=== PATIENT | male | born 1990 | race African-American/Black ===

== ENCOUNTER 2022-08-12 21:09 | Emergency (ER) | payer SELFPAY ==
[~2022-08-12] VITALS: Ht 185.4 cm; Wt 91.1 kg
[2022-08-12 21:10] VITALS: BP 130/100
[2022-08-14] MEDS ORDERED: CEPH500C PO (18:52)
== END 2022-08-13 00:03 | disposition left against medical advice (07) ==
LOC: M ED 21:09
DX: Z53.21 Procedure and treatment not carried out due to patient leaving prior to being seen by health care provider (principal)

== ENCOUNTER 2022-08-14 15:04 | Emergency (ER) | payer OTHER, SELFPAY ==
[~2022-08-14] VITALS: Ht 182.9 cm; Wt 95.8 kg
[2022-08-14] MEDS ORDERED: CEPH500C PO (18:52)
[2022-08-14 18:58] VITALS: BP 158/95
== END 2022-08-14 19:09 | disposition home or self-care (01) ==
LOC: M ED 15:04
DX: L03.116 Cellulitis of left lower limb (principal); S90.222A Contusion of left lesser toe(s) with damage to nail, initial encounter; S91.312A Laceration without foreign body, left foot, initial encounter; W22.8XXA Striking against or struck by other objects, initial encounter; Y92.009 Unspecified place in unspecified non-institutional (private) residence as the place of occurrence of the external cause; Z90.89 Acquired absence of other organs